=== PATIENT | female | born 1990 | race Caucasian/White ===

== ENCOUNTER 2024-01-12 08:49 | Outpatient (CLI) | payer OTHER, SELFPAY | END 2024-01-12 08:50 | disposition home or self-care (01) | PROVIDERS: Visit Provider Physician Assistant | DX: Z01.419 Encounter for gynecological examination (general) (routine) without abnormal findings (principal); E66.9 Obesity, unspecified; Z12.4 Encounter for screening for malignant neoplasm of cervix; Z13.1 Encounter for screening for diabetes mellitus; Z13.6 Encounter for screening for cardiovascular disorders; Z13.29 Encounter for screening for other suspected endocrine disorder | CPT/HCPCS: 80061; 82947; 84443 ==

== ENCOUNTER 2024-05-08 15:46 | Outpatient (CLI) | payer OTHER, SELFPAY ==
--- NOTE | 2024-05-08 16:00 | CRLHL7_ITS ---
For Patients: As a result of the Century Cures Act, medical imaging exams and procedure reports are released immediately into your electronic medical record. You may view this report before your referring provider. If you have questions, please contact your health care provider. INDICATION: First trimester scan, establish dates. COMPARISON: None. TECHNIQUE: Real-time jefferson-scale imaging of the pelvis was performed. FINDINGS: Sonographic imaging demonstrates a single living intrauterine gestation. The embryo demonstrates a regular cardiac rate measuring 173 beats per minute. The embryo`s crown-rump length measurement of 1.9 cm corresponds to a gestational age of 8 weeks 2 days with a sonographic due date of 12/16/2024. There is a normal-appearing yolk sac. There are no gross abnormalities noted within the embryo at this early state of development. The gestational sac has a normal appearance. There is a 10 x 10 x 2 millimeter perigestational hemorrhage. The amount of fluid within the sac appears appropriate for gestational age. The cervix is closed. Intramural fibroid within the right side of the uterus measures 9 x 10 x 9 millimeters. Simple left ovarian cyst measures 2.8 x 2.6 x 2.7 cm. Small right adnexal cyst measures 1.3 x 1.1 x 1.2 cm. Normal right ovary. There are no suspicious fluid collections noted in the cul-de-sac. IMPRESSION: Sonographic gestational age 8 weeks 2 days and sonographic due date 12/16/2024. Dictated by Samir Jackson MD @ 05/10/2024 5:42:39 AM (Electronically Signed)
== END 2024-05-08 15:47 | disposition home or self-care (01) ==
LOC: US 15:46
PROVIDERS: Visit Provider Registered Nurse
DX: Z34.91 Encounter for supervision of normal pregnancy, unspecified, first trimester (principal); Z3A.08 8 weeks gestation of pregnancy
CPT/HCPCS: 76817

== ENCOUNTER 2024-05-08 16:52 | Outpatient (CLI) | payer OTHER, SELFPAY ==
[2024-05-08 22:09] LABS: Chlamydia DNA Amplified* NOT DETECTED (No Detected); GC DNA Amplified* NOT DETECTED (No Detected)
[2024-05-14 07:23] LABS: Total Protein Urine 16 mg/dL
[2024-05-14 07:24] LABS: Creatinine Urine 60.4 mg/dL; Protein Creatinine Ratio Urine 0.26 (0-0.19)
[2024-05-14 07:25] LABS: Collection Time Urine 24 Hours; Total Volume 24 Hour Urine 2650 ml; Urine Creatinine mg/24 Hour 0 mg/Day
== END 2024-05-08 16:53 | disposition home or self-care (01) ==
PROVIDERS: PCP Physician Assistant; Visit Provider Registered Nurse
DX: Z34.01 Encounter for supervision of normal first pregnancy, first trimester (principal); Z67.10 Type A blood, Rh positive
CPT/HCPCS: 82565; 82570; 84156; 84450; 84460; 84520; 86592; 86703; 86704; 86706; 86762; 86787; 86803; 86850; 86900; 86901; 87086; 87340; 87491; 87591

== ENCOUNTER 2024-07-24 06:00 | Outpatient (CLI) | payer OTHER, SELFPAY | END 2024-07-24 06:01 | disposition home or self-care (01) | LOC: NFLDREF 07-27 07:33 | PROVIDERS: Visit Provider Obstetrics & Gynecology | DX: O12.12 Gestational proteinuria, second trimester (principal); Z3A.18 18 weeks gestation of pregnancy | CPT/HCPCS: 82570; 84156 ==

== ENCOUNTER 2024-08-01 13:51 | Outpatient (CLI) | payer OTHER, SELFPAY ==
--- NOTE | 2024-08-01 14:00 | CRLHL7_ITS ---
For Patients: As a result of the Century Cures Act, medical imaging exams and procedure reports are released immediately into your electronic medical record. You may view this report before your referring provider. If you have questions, please contact your health care provider. HISTORY: anatomic survey. COMPARISON: Early OB ultrasound from 05/08/2024. TECHNIQUE: Ultrasound examination of the is performed with transabdominal technique. Transvaginal ultrasound examination of the cervix is performed. FINDINGS: A single intrauterine gestation is seen in variable presentation with regular cardiac activity at 155 beats per minute. The placenta is anterior and is free of the cervical os. The placental grade is 0 and the amniotic fluid volume is normal. Single deepest vertical pocket: Normal at 5.5 cm. Cervix nondilated and normal in length at 4.0 cm. BPD: 4.9 cm 21 weeks 0 days HC: 18.6 cm 21 weeks 0 days AC: 15.9 cm 21 weeks 0 days. Fifty-ninth percentile. FL: 3.7 cm 21 weeks 5 days The estimated age by ultrasound is 21 weeks 2 days, with an estimated date of delivery of 12/10/2024. This correlates well with the clinical age of 20 weeks 4 days and the previous ultrasound. The ultrasound ratios are normal. The estimated weight 400 grams is at the 82nd percentile based on the clinical dates. The anatomic survey demonstrates normal appearing intracranial structures with a normal septum pellucidum and normal cerebellum. The nuchal thickness is normal at 4 mm, and the lateral ventricle is normal in diameter at 5 mm. The upper lip, 4 chamber heart, left and right ventricular outflow tracts, diaphragm, stomach, cord insertion site, 3-vessel cord, and kidneys are normal in appearance. The urinary bladder and spine in the longitudinal plane are not adequately examined. IMPRESSION: 1. Single intrauterine gestation in cephalic presentation with regular cardiac activity. 2. Estimated gestational age is 21 weeks 2 days. 3. There has been appropriate interval growth. 4. The estimated weight 400 grams is at the 82nd percentile based on the clinical dates. 5. Unable to examine the urinary bladder and spine in the longitudinal plane. Dictated by Marky Petersen MD @ 08/01/2024 11:00:38 PM (Electronically Signed)
== END 2024-08-01 13:52 | disposition home or self-care (01) ==
LOC: US 13:51
PROVIDERS: Visit Provider Obstetrics & Gynecology
DX: Z34.92 Encounter for supervision of normal pregnancy, unspecified, second trimester (principal); Z3A.21 21 weeks gestation of pregnancy
CPT/HCPCS: 76805; 76817

== ENCOUNTER 2024-08-30 14:06 | Outpatient (CLI) | payer OTHER, SELFPAY ==
--- NOTE | 2024-08-30 14:00 | CRLHL7_ITS ---
For Patients: As a result of the Century Cures Act, medical imaging exams and procedure reports are released immediately into your electronic medical record. You may view this report before your referring provider. If you have questions, please contact your health care provider. INDICATION: Follow-up bladder and spine COMPARISON: 08/01/2024 TECHNIQUE: Real-time jefferson-scale imaging of the pelvis was performed. FINDINGS: heart rate 150 beats per minute. Cervix closed measuring 3.9 cm. Anterior placenta. Vertex position. Normal spine and bladder. IMPRESSION: Normal spine and bladder. Dictated by Samir Jackson MD @ 08/31/2024 10:17:27 AM (Electronically Signed)
== END 2024-08-30 14:07 | disposition home or self-care (01) ==
LOC: US 14:06
PROVIDERS: Visit Provider Obstetrics & Gynecology
DX: O35.FXX0 Maternal care for other (suspected) fetal abnormality and damage, fetal musculoskeletal anomalies of trunk, not applicable or unspecified (principal)
CPT/HCPCS: 76816

== ENCOUNTER 2024-09-25 15:16 | Outpatient (CLI) | payer OTHER, SELFPAY | END 2024-09-25 15:17 | disposition home or self-care (01) | LOC: NFLDREF 09-29 10:13 | PROVIDERS: Visit Provider Obstetrics & Gynecology | DX: Z34.93 Encounter for supervision of normal pregnancy, unspecified, third trimester (principal); Z3A.28 28 weeks gestation of pregnancy | CPT/HCPCS: 86592 ==

== ENCOUNTER 2024-11-08 14:50 | Outpatient (CLI) | payer OTHER, SELFPAY ==
--- NOTE | 2024-11-08 15:00 | CRLHL7_ITS ---
For Patients: As a result of the Century Cures Act, medical imaging exams and procedure reports are released immediately into your electronic medical record. You may view this report before your referring provider. If you have questions, please contact your health care provider. INDICATION: Unspecified pre-existing HTN TECHNIQUE: Real time jefferson scale imaging of the fetus was performed. COMPARISON: 08/30/2024 FINDINGS/IMPRESSION: Sonographic imaging demonstrates a single living intrauterine gestation. Fetus demonstrates a regular cardiac rate of 157 beats per minute. Fetus has a vertex position. The placenta lies anterior. Amniotic fluid volume appears normal and there is a single deepest pocket of 6.6 cm. The estimated weight is 2845gm which lies at the 83rd %. BPD greater than 97th percentile. HC 85th percentile. AC 92nd percentile. FL 26th percentile. Sonographic gestational age 36 weeks 4 days and sonographic due date 12/02/2024. Sonographic gauge 13 days ahead of the clinical age. The fetus was active and demonstrated normal breathing movements. There was normal flexion and extension of the trunk and extremities. Normal biophysical profile score 8/8. Dictated by Samir Jackson MD @ 11/09/2024 9:57:09 AM (Electronically Signed)
== END 2024-11-08 14:51 | disposition home or self-care (01) ==
LOC: US 14:51
PROVIDERS: Visit Provider Obstetrics & Gynecology
DX: O10.913 Unspecified pre-existing hypertension complicating pregnancy, third trimester (principal); O36.63X0 Maternal care for excessive fetal growth, third trimester, not applicable or unspecified; Z3A.36 36 weeks gestation of pregnancy
CPT/HCPCS: 76816; 76819

== ENCOUNTER 2024-11-08 15:44 | Outpatient (CLI) | payer OTHER, SELFPAY | END 2024-11-08 15:45 | disposition home or self-care (01) | PROVIDERS: Visit Provider Obstetrics & Gynecology | DX: O10.913 Unspecified pre-existing hypertension complicating pregnancy, third trimester (principal); Z3A.34 34 weeks gestation of pregnancy | CPT/HCPCS: 82565; 82570; 84156; 84450; 84460; 84520 ==

== ENCOUNTER 2024-11-16 11:15 | Outpatient (CLI) | payer OTHER, SELFPAY | END 2024-11-16 11:16 | disposition home or self-care (01) | LOC: NFLDREF 11-22 02:43 | PROVIDERS: Visit Provider Obstetrics & Gynecology | DX: O10.913 Unspecified pre-existing hypertension complicating pregnancy, third trimester (principal); Z3A.35 35 weeks gestation of pregnancy | CPT/HCPCS: 82570; 84156 ==

== ENCOUNTER 2024-11-16 11:18 | Outpatient (CLI) | payer OTHER, SELFPAY ==
--- NOTE | 2024-11-16 11:30 | CRLHL7_ITS ---
For Patients: As a result of the Century Cures Act, medical imaging exams and procedure reports are released immediately into your electronic medical record. You may view this report before your referring provider. If you have questions, please contact your health care provider. INDICATION: Pre-existing hypertension TECHNIQUE: Ultrasound OB pelvis transabdominal. Real-time jefferson-scale imaging of the fetus was performed without stress testing. COMPARISON: Ob ultrasound 11/08/2024 FINDINGS: heart rate: Regular, 139 bpm. position: Cephalic. Amniotic fluid volume single deepest pocket 6.7 cm, 2/2. motion 0/2. No image saved. tone 0/2. No image saved. breathing movements 2/2. No image saved Umbilical artery S/D ratio: 2.1 with diastolic activity present. IMPRESSION: [place]daña intrauterine with a biophysical profile 4/8. Correlate with nonstress test. Cardiac activity is present. Normal umbilical artery Doppler waveform with S/D ratio of 2.1. Dictated by Seda Miller MD @ 11/16/2024 12:47:28 PM (Electronically Signed)
== END 2024-11-16 11:19 | disposition home or self-care (01) ==
LOC: US 11:18
PROVIDERS: Visit Provider Obstetrics & Gynecology
DX: O10.913 Unspecified pre-existing hypertension complicating pregnancy, third trimester (principal); Z3A.35 35 weeks gestation of pregnancy
CPT/HCPCS: 76819; 76820

== ENCOUNTER 2024-11-16 17:13 | Inpatient (IN) | payer OTHER, SELFPAY ==
[2024-11-16] VITALS (42 sets, daily range): BP systolic 111–164; BP diastolic 58–114; PULSE 41–97; RESP 16; TEMP 36.7–37.1; O2SAT 75–96; BMI 36.4
[2024-11-16 13:41] LABS: Hematocrit 35.8 % (33.0-51.0); Hemoglobin* 12.1 gm/dL (12.0-16.0); Mean Corpuscular HGB Conc 34 gm/dL (32-36); Mean Corpuscular Hemoglobin 30 pg (26-34); Mean Corpuscular Volume 89 fL (80-100); Platelet Count* 199 K/uL (140-440); Red Blood Count 4.02 m/uL (4.00-5.20); White Blood Count* 14.77 K/uL (4.50-11.00)
[2024-11-16 13:44] LABS: Slide Review Reflex No
[2024-11-16 13:50] LABS: Alanine Aminotransferase* 20 U/L (4-35); Aspartate Amino Transferase* 16 U/L (12-35); Blood Urea Nitrogen* 16 mg/dL (5-24); Creatinine* 0.8 mg/dL (0.5-1.5); Estimated Glomerular Filt Rate 100 ml/min
[2024-11-16] MEDS: NIFEdipine 30 MG TAB.ER.24 PO (14:51)
[2024-11-16] MEDS: BETAMETHASONE SOD PHOS/ACETATE 6 MG/ML ML 12 MG IM (14:59)
[2024-11-16] MEDS: ACETAMINOPHEN 500 MG TABLET 1000 MG PO (16:52)
--- NOTE | 2024-11-16 16:57 | P.OBHP_ITS ---
OB - H&P: HPI Labor/Induction History of Present Illness Date Seen: 11/16/24 Chief Complaint: The patient is a 34 year old 1 para 0 woman at 35 weeks, 6 days gestation by LMP consistent with 1st trimester ultrasound, TORSTEN 12/15/2024, who presented today for BPP for indication of chronic hypertension on medication complicating . Her initial score was 4/8, missing 4 points for lack of fine and gross body movements. She was sent to the Center for extended monitoring, which was entirely reactive and reassuring. However, her blood pressures were noted to be intermittently, severely elevated. This is despite her taking nifedipine 30 mg ER every morning. She was given an additional dose of 30 mg while in the Center, which did not prevent severely elevated blood pressures. At this point, she has been monitored over the course of nearly 4 hours, and has had multiple blood pressures elevated to the severe range. HELLP labs have been reassuring, with creatinine of 0.8, normal transaminases, and normal platelets. Her protein to creatinine ratio is still beneath 0.3. She does complain of a headache, but this has responded to Tylenol. Past medical, surgical, family, and social history are reviewed and updated in the EHR. 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 Baby girl: [place] name #BMI 32.7 Hemoglobin A1c: 5.4 Recommended daily low-dose aspirin starting at 12 weeks to reduce risk of preeclampsia #Chronic Hypertension with severe gestational exacerbation * Nifedipine ER 30mg daily started on 11/08/2024, recommended checking BP daily contact clinic if >/= 140/90 * Blood pressure at 1st OB vis 138/68. Baseline pre E labs drawn. Normal BUN, Creat, AST, ALT. Total protein 20. 424 mg protein / 24 hours. * Referred to nephrology 05/14. -- Ordered a urinalysis to rule out hematuria (n egative). If positive for blood then plan to complete glomerulonephritis workup. Follow-up with Nephrology 07/30/2024: 264 mg protein/24 hour. Follow- up with Nephrology February 2025. * Given baseline proteinuria and elevated systolic at first visit, I favor management as chronic hypertensive * Q4 weeks growth scan starting at 28 weeks * Weekly BPP starting at 34w5d on 11/08/2024 * Delivery at 37w0d - 39w6d: would like to hold off if possible until 12/01/24 or later * Labs 11/08/2024: Hgb 11.9. Plts 206k, AST 20, ALT 18, Creat: 1.0, BUN 17. Urine P/C: 0.22 # History of anxiety in 2022. Took medication for less than a month and self- discontinued. Currently stable. Covid: Completed and boosted x1. Recommended booster. Patient declines. Flu: received Tdap: received RSV: 11/07/24 32 week DENNIS = 2, PHQ = 4 Imagin11/08/2024; Vtx. SDP 6.6cm. BPP 06/28. EFW 2845 g, 6 lb 4 oz, 83%. BPD >97%, HC 85%, AC 92%, FL 26% Review of Systems Narrative: Positive for headache. Responded to Tylenol. No visual changes or right upper quadrant pain. Meds Home Medications and Allergies Home Medications ?Medication ?Instructions ?Recorded ?Confirmed ?Type docosahexaenoic acid 200 mg 200 mg PO DAILY 01/12/24 11/16/24 History capsule ( DHA) acetaminophen 325 mg capsule 325 mg PO ONCE PRN 06/04/24 11/16/24 History (Tylenol) aspirin 81 mg chewable tablet 81 mg PO QDAY 06/04/24 11/16/24 History Allergies Allergy/AdvReac Type Severity Reaction Status Date / Time No Known Drug Allergies Allergy Verified 11/16/24 12:51 OB - H&P: Exam Physical Exam: Vital signs: Temp Pulse BP Pulse Ox 98.2 F 81 132/63 96 11/16/24 12:51 11/16/24 16:35 11/16/24 16:49 11/16/24 16:09 Narrative: Physical exam: General: No acute distress Psych: Alert and oriented x3, full affect HEENT: Normocephalic, atraumatic Heart: Regular rate and rhythm, no murmur rub or gallop Lungs: Clear to auscultation bilaterally Abdomen: Soft, nontender, gravid, cephalic lie Lower extremities: No edema or erythema Pelvic exam: 1 / 50 / -2 / midposition / moderate consistency tracing: Baseline 140, accelerations present, no decelerations, moderate variability Contractions intermittently registering at a small amplitude every 2 minutes OB - Results Labs Labs: Short CBC 11/16/24 Range/Units 13:27 WBC 14.77 H (4.50-11.00) K/uL Hgb 12.1 (12.0-16.0) gm/dL Hct 35.8 (33.0-51.0) % Plt Count 199 (140-440) K/uL BMP 11/16/24 13:27 BUN 16 Creatinine 0.8 Liver Function 11/16/24 Range/Units 13:27 AST 16 (12-35) U/L ALT 20 (4-35) U/L OB - Problem Based A/P Additional Plan (1) Gestational hypertension: Problem details: Severe gestational hypertension superimposed on chronic hypertension Status: Acute Plan Admit to Center for induction of labor for indication of severe gestational hypertension superimposed upon chronic hypertension. Begin magnesium sulfate for seizure prophylaxis. Serial HELLP labs q.6 hours. Fluid restriction to 2 L p.o. per 24 hours. Strict ins and outs. Treat any severe range blood pressures that are sustained with IV antihypertensives. Once labor begins, begin ampicillin for GBS unknown status until her GBS result has returned. Unfavorable cervix. Using aseptic technique, Cook catheter placed. Intrauterine and vaginal balloons inflated to 60 cc. Patient tolerated this well.
[2024-11-16 17:54] LABS: Hemoglobin* 12.2 gm/dL (12.0-16.0); Mean Corpuscular HGB Conc 34 gm/dL (32-36); Mean Corpuscular Hemoglobin 30 pg (26-34); Mean Corpuscular Volume 89 fL (80-100); Platelet Count* 209 K/uL (140-440); Red Blood Count 4.06 m/uL (4.00-5.20); White Blood Count* 16.89 K/uL (4.50-11.00)
[2024-11-16 18:00] LABS: Slide Review Reflex No
[2024-11-16] MEDS: MAGNESIUM IV 4 GM/100 ML PIGGYBACK IVPB (18:01)
[2024-11-16] MEDS: LACTATED RINGERS 1000 ML 1,000 ML 75 ML IV (18:01)
[2024-11-16 18:12] LABS: Alanine Aminotransferase* 21 U/L (4-35); Aspartate Amino Transferase* 17 U/L (12-35); Blood Urea Nitrogen* 15 mg/dL (5-24); Creatinine* 0.8 mg/dL (0.5-1.5); Estimated Glomerular Filt Rate 100 ml/min
[2024-11-16] MEDS: MAGNESIUM Infusion 40 GM/1,000 ML IV.SOLN IVPB (18:32)
[2024-11-16] MEDS: CALCIUM CARBONATE 500 MG CHEW PO (18:48)
[2024-11-16] MEDS: hydrOXYzine pamoate 25 MG CAPSULE 100 MG PO (20:31)
[2024-11-16] MEDS: MORPHINE 10 MG/ML inj IM (20:31)
[2024-11-16] MEDS: OXYTOCIN 30 unit/500 ML in NS 30 UNIT/500 ML BAG IVPB (20:57)
[2024-11-16] MEDS: ONDANSETRON 2 MG/ML inj 4 MG IV (23:50)
[2024-11-17] VITALS (108 sets, daily range): BP systolic 98–179; BP diastolic 50–94; PULSE 74–109; RESP 16; TEMP 36.5–37; O2SAT 92–100
[2024-11-17 01:49] LABS: Hematocrit 36.1 % (33.0-51.0); Hemoglobin* 12.1 gm/dL (12.0-16.0); Mean Corpuscular HGB Conc 34 gm/dL (32-36); Mean Corpuscular Hemoglobin 30 pg (26-34); Mean Corpuscular Volume 90 fL (80-100); Platelet Count* 198 K/uL (140-440); Red Blood Count 4.03 m/uL (4.00-5.20); White Blood Count* 19.88 K/uL (4.50-11.00)
[2024-11-17 02:00] LABS: Slide Review Reflex No
[2024-11-17 02:06] LABS: Alanine Aminotransferase* 21 U/L (4-35); Aspartate Amino Transferase* 19 U/L (12-35); Blood Urea Nitrogen* 14 mg/dL (5-24); Creatinine* 0.8 mg/dL (0.5-1.5); Estimated Glomerular Filt Rate 100 ml/min
[2024-11-17 02:20] LABS: Magnesium* 4.9 mg/dL (1.5-2.6)
[2024-11-17 06:03] LABS: Hematocrit 34.5 % (33.0-51.0); Hemoglobin* 11.6 gm/dL (12.0-16.0); Mean Corpuscular HGB Conc 34 gm/dL (32-36); Mean Corpuscular Hemoglobin 30 pg (26-34); Mean Corpuscular Volume 90 fL (80-100); Platelet Count* 194 K/uL (140-440); Red Blood Count 3.84 m/uL (4.00-5.20); White Blood Count* 20.18 K/uL (4.50-11.00)
[2024-11-17 06:07] LABS: Slide Review Reflex No
[2024-11-17 06:11] LABS: Alanine Aminotransferase* 21 U/L (4-35); Aspartate Amino Transferase* 18 U/L (12-35); Blood Urea Nitrogen* 13 mg/dL (5-24); Creatinine* 0.8 mg/dL (0.5-1.5); Est. Creatinine Clearance* 111.79; Estimated Glomerular Filt Rate 100 ml/min
[2024-11-17 06:14] LABS: Magnesium* 5.5 mg/dL (1.5-2.6)
[2024-11-17] MEDS: LACTATED RINGERS 1000 ML 1,000 ML 75 ML IV (06:53)
[2024-11-17] MEDS: CALCIUM CARBONATE 500 MG CHEW PO (09:00)
[2024-11-17] MEDS: ACETAMINOPHEN 500 MG TABLET 1000 MG PO ×2 (09:01→15:05)
--- NOTE | 2024-11-17 09:28 | PM.OBPNL ---
Subjective Time Seen by Provider: 09:48 Date Seen: 11/17/24 Narrative: She can tell is a 34-year-old at 36 weeks 0 days gestation admitted for superimposed preeclampsia with severe features yesterday, by severe range blood pressures. She was initiated on magnesium sulfate for seizure prophylaxis, serial HELLP labs have been obtained and are within normal limits. Induction of labor was started with a Cook catheter and Pitocin overnight. This morning, patient notes her contractions are like period cramps, rated as 3/10 in severity and occurring every 5-10 minutes. She is currently on Pitocin 12 milliunits per minute. Denies vaginal bleeding or leaking of fluid. Endorses active movement. Denies headache, vision changes or right upper quadrant pain. She notes she is feeling poorly on magnesium, flushed and tired. Objective Exam: General: Alert and oriented, in no acute distress Psych: Appropriate mood and affect Abdomen: Gravid. EFW 2845gm which lies at the 83rd %. Cervix: 5/80/-1 FHR: Baseline 140bpm, moderate variability, accelerations present and decelerations absent Vital Signs: Last Vital Signs Temp 98.1 F 11/17/24 04:30 Pulse 78 11/17/24 08:29 Resp 16 11/17/24 04:30 BP 115/59 L 11/17/24 08:29 Pulse Ox 93 11/16/24 18:45 Plan Plan: Kianna is a 34yo at 36w0d GA admitted for IOL in the setting of superimposed preE with SF (severe range BP). is otherwise complicated by elevated BMI. IOL progress has included cook catheter and pitocin. Overnight, her BP was in the normal to mild range. Plan to hold her AM nifedipine at this time, given normal BPs and planned epidural and potential post-epidural hypotension. Plan to resume long acting regimen as needed in the coming hours. Diligent BP monitoring ongoing, plan to treat any sustained SRBP as needed. Q6H HELLP labs have remained WNL. UOP is robust, 900mL in the last 4 hours. - Continue BP monitoring and serial HELLP labs. Continue magnesium sulfate for 24 hours post-delivery. - Cervix is 5/80/-1 on exam this morning, Pitocin at 12 milliunits per minute. Plan to continue Pitocin titration, as patient is only rating her contractions as 3/10 every 5-10 minutes. Discussed likely next step of AROM around noon, patient intends to get epidural placed prior to this. - blood type A positive - GBS unknown, start GBS prophylaxis in the setting of prematurity as risk factors - Peds to attend delivery given prematurity and mag sulfate
[2024-11-17] MEDS: AMPICILLIN 2 GM in 0.9 % SODIUM CHLORIDE Mini-bag 100 ML IVPB (10:09)
[2024-11-17] MEDS: ROPIVACAINE 0.2% 100 ml 100 ML 12 MG EPIDURAL ×2 (11:35→19:14)
[2024-11-17] MEDS: LIDOCAINE 2% (PF) 5 ML VIAL EPIDURAL ×2 (11:35→17:43)
--- NOTE | 2024-11-17 11:43 | PM.ANBPRC ---
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 Lives in [place] with her . Exercises 5 days a week. Nonsmoker. What is your current living situation?: I presently have a place to live Problems where you live: no known problems In the past 12 months, utilities in danger of being shut off: no In past 12 months, lack of transportation kept you from medical appts, meetings, work, or getting things needed for daily living: no In the past 12 mos, have been you worried that your food would run out before you had money to buy more?: never true In the past 12 mos, the food you bought just didn't last and you didn't have money to buy more?: never true Smoking Status: Never smoker How often does anyone, including family, friends and others, physically hurt you: never How often does anyone, including family, friends and others, insult or talk down to you: never How often does anyone, including family, friends and others, threaten you with harm: never How often does anyone, including family, friends and others, scream or curse at you: never Meds Home Medications and Allergies Home Medications ?Medication ?Instructions ?Recorded ?Confirmed ?Type docosahexaenoic acid 200 mg 200 mg PO DAILY 01/12/24 11/16/24 History capsule ( DHA) acetaminophen 325 mg capsule 325 mg PO ONCE PRN 06/04/24 11/16/24 History (Tylenol) aspirin 81 mg chewable tablet 81 mg PO QDAY 06/04/24 11/16/24 History Allergies Allergy/AdvReac Type Severity Reaction Status Date / Time No Known Drug Allergies Allergy Verified 11/16/24 12:51 Results Labs Labs: Laboratory Results - last 24 hr 11/16/24 11/16/24 11/17/24 13:27 17:40 01:40 WBC 14.77 H 16.89 H 19.88 H RBC 4.02 4.06 4.03 Hgb 12.1 12.2 12.1 Hct 35.8 36.0 36.1 MCV 89 89 90 MCH 30 30 30 MCHC 34 34 34 Plt Count 199 209 198 BUN 16 15 14 Creatinine 0.8 0.8 0.8 Estimated Creat Clear Estimated GFR 100 100 100 Magnesium 4.9 H* AST 16 17 19 ALT 20 21 21 Blood Type A Positive Antibody Screen NEGATIVE 11/17/24 05:36 WBC 20.18 H RBC 3.84 L Hgb 11.6 L Hct 34.5 MCV 90 MCH 30 MCHC 34 Plt Count 194 BUN 13 Creatinine 0.8 Estimated Creat Clear 111.79 Estimated GFR 100 Magnesium 5.5 H* AST 18 ALT 21 Blood Type Antibody Screen Vital Signs Vital Signs: Last Vital Signs Temp 98.1 F 11/17/24 04:30 Pulse 88 11/17/24 11:41 Resp 16 11/17/24 04:30 BP 118/60 11/17/24 11:41 Pulse Ox 96 11/17/24 11:40 Weight: 118.569 kg Height: 180.34 cm Anesthesia Procedures Epidural Insertion Patient Location: OB Start Time: 11:15 Stop Time: 11:45 Start Date: 11/17/24 Stop Date: 11/17/24 Reason for Block: primary anesthetic Patient Position: sitting Performed By: Arnie Donovan Preanesthetic Checklist: IV checked, risks and benefits discussed, surgical consent, monitors and equipment checked, pre-op evaluation, timeout performed and anesthesia consent Prep: chlorhexidine gluconate Monitoring: blood pressure monitoring, rn cardiac cath, continuous pulse oximetry and heart rate Approach: midline Vertebral Space: lumbar (1-5) Needle Type: Tuohy needle Injection Technique: continuous catheter (catheter) Needle gauge: 17 Needle Length (cm): 10 cm Needle Insertion Depth (cm): 6 Catheter Gauge: 19 Catheter Type: multi-orifice Catheter at skin depth (cm): 11 Test Dose Result: negative and lidocaine 1.5% with epinephrine 1 to 200,000
[2024-11-17 11:51] LABS: Hematocrit 34.8 % (33.0-51.0); Hemoglobin* 11.5 gm/dL (12.0-16.0); Mean Corpuscular HGB Conc 33 gm/dL (32-36); Mean Corpuscular Hemoglobin 30 pg (26-34); Mean Corpuscular Volume 90 fL (80-100); Platelet Count* 193 K/uL (140-440); Red Blood Count 3.87 m/uL (4.00-5.20); White Blood Count* 19.96 K/uL (4.50-11.00)
[2024-11-17 12:05] LABS: Alanine Aminotransferase* 22 U/L (4-35); Aspartate Amino Transferase* 18 U/L (12-35); Blood Urea Nitrogen* 14 mg/dL (5-24); Creatinine* 0.9 mg/dL (0.5-1.5); Est. Creatinine Clearance* 99.37; Estimated Glomerular Filt Rate 87 ml/min
[2024-11-17 12:13] LABS: Slide Review Reflex No
[2024-11-17 12:14] LABS: Magnesium* 5.7 mg/dL (1.5-2.6)
[2024-11-17] MEDS: PHENYLEPHRINE 100 MCG/ML SYRINGE IVP ×2 (12:15→12:22)
[2024-11-17] MEDS: ePHEDrine sulfate 5 MG/ML inj 10 MG IVP ×2 (12:28→12:51)
[2024-11-17] MEDS: LACTATED RINGERS 1000 ML 1,000 ML IV (12:32)
--- NOTE | 2024-11-17 13:09 | PM.OBPNL ---
Subjective Time Seen by Provider: 13:09 Date Seen: 11/17/24 Narrative: She can tell is a 34-year-old at 36 weeks 0 days gestation admitted for superimposed preeclampsia with severe features yesterday, by severe range blood pressures. She was initiated on magnesium sulfate for seizure prophylaxis, serial HELLP labs have been obtained and are within normal limits. Induction of labor was started with a Cook catheter and Pitocin. She notes contractions picked up since our last check, now s/p epidural. Objective Exam: General: Alert and oriented, in no acute distress Psych: Appropriate mood and affect Abdomen: Gravid. EFW 2845gm which lies at the 83rd %. Cervix: 5/80/-1 - s/p AROM with return of clear fluid. FHR: Baseline 140bpm, moderate variability, accelerations present and decelerations absent Vital Signs: Last Vital Signs Temp 97.8 F 11/17/24 12:34 Pulse 93 11/17/24 13:04 Resp 16 11/17/24 04:30 BP 133/72 11/17/24 13:04 Pulse Ox 99 11/17/24 12:10 Plan Plan: Kianna is a 34yo at 36w0d GA admitted for IOL in the setting of superimposed preE with SF (severe range BP). is otherwise complicated by elevated BMI. IOL progress has included cook catheter and pitocin. - Continue BP monitoring and serial HELLP labs. Continue magnesium sulfate for 24 hours post-delivery. - Cervix is unchanged at 5/80/-1. s/p AROM with return of clear fluid. - Comfortable with epidural place. - Category 1 FHR tracing. - Anticipate next check in 4 hours, sooner as clinically indicated. - Blood type A positive - GBS unknown, start GBS prophylaxis in the setting of prematurity as risk factors - Peds to attend delivery given prematurity and mag sulfate
[2024-11-17] MEDS: AMPICILLIN 1 GM in 0.9 % SODIUM CHLORIDE Mini-bag 100 ML IVPB ×3 (14:09→22:26)
[2024-11-17] MEDS: MAGNESIUM Infusion 40 GM/1,000 ML IV.SOLN IVPB (14:42)
[2024-11-17] MEDS: BETAMETHASONE SOD PHOS/ACETATE 6 MG/ML ML 12 MG IM (15:13)
[2024-11-17 17:19] LABS: Strep B DNA Probe Negative (Negative)
[2024-11-17] MEDS: fentaNYL 100 MCG/2 ML inj EPIDURAL (17:35)
[2024-11-17 18:04] LABS: Strep B Susceptibility Needed? No
[2024-11-17 18:09] LABS: Hematocrit 34.3 % (33.0-51.0); Hemoglobin* 11.4 gm/dL (12.0-16.0); Mean Corpuscular HGB Conc 33 gm/dL (32-36); Mean Corpuscular Hemoglobin 30 pg (26-34); Mean Corpuscular Volume 90 fL (80-100); Platelet Count* 193 K/uL (140-440); Red Blood Count 3.82 m/uL (4.00-5.20); White Blood Count* 21.09 K/uL (4.50-11.00)
[2024-11-17 18:14] LABS: Slide Review Reflex No
[2024-11-17 18:26] LABS: Alanine Aminotransferase* 20 U/L (4-35); Aspartate Amino Transferase* 19 U/L (12-35); Blood Urea Nitrogen* 13 mg/dL (5-24); Creatinine* 0.9 mg/dL (0.5-1.5); Est. Creatinine Clearance* 99.37; Estimated Glomerular Filt Rate 87 ml/min
[2024-11-17 18:32] LABS: Magnesium* 6.1 mg/dL (1.5-2.6)
--- NOTE | 2024-11-17 21:44 | PM.OBPNL ---
Subjective Date Seen: 11/17/24 Narrative: Delayed documentation due to patient cares. Kianna is a 34-year-old at 36 weeks 0 days gestation admitted for superimposed preeclampsia with severe features yesterday, by severe range blood pressures. She was initiated on magnesium sulfate for seizure prophylaxis, serial HELLP labs have been obtained and are within normal limits. BPs have been in the normal to mild range, not on an antihypertensive regimen at this time. Induction of labor was started with a Cook catheter and Pitocin, augmented with AROM. Kianna has been complete and pushing since 0. On my initial exam, she is 10/100/0 station and position palpates KARISSA. She had an normal course through the active phase of labor. She had difficulty with pain control, where epidural was bolused by anesthesia about 1 hour before onset of pushing. She has had severe left back pain that does seem to coincide with contractions, where pushing has been delayed intermittently for position changes, ice and back massage. She has been pushing for about 1.5 of the last 2 hours. station has made slow descent, now about +1. Moderate caput noted. station palpates KARISSA confirmed with US where spine is noted to be anterior. We discussed gradual progress has been made. She has a tachysystolic contraction pattern, where pitocin was reduced to 10mu/min to allow for more appropriate contraction spacing. Maternal effort is good, pain control is fair despite left back pain. Continue maternal expulsive efforts. Objective Vital Signs: Last Vital Signs Temp 98.1 F 11/17/24 16:40 Pulse 107 H 11/17/24 21:37 Resp 16 11/17/24 04:30 BP 145/90 H 11/17/24 21:37 Pulse Ox 98 11/17/24 18:44
--- NOTE | 2024-11-17 23:25 | P.OBPN_ITS ---
Subjective Time Seen by Provider: 23:25 Date Seen: 11/17/24 Narrative: At 2.5 hours of pushing time but 4 hours since complete, I returned to the bedside to complete an exam. station palpates at +2, minimal descent with expulsive efforts. position palpates KARISSA. Kianna is exhausted and miserable from her right back and pelvic pain. Given this and the fact that delivery is not imminent, we discussed proceeding with an expedited delivery via operative vaginal delivery versus primary . I explained that my medical recommendation would be to consider forceps if we do proceed to an operative, given the degree of caput and my impression for higher likelihood of success. I did explain the risk of forceps including failed operative delivery leading to , injury (bruising, laceration, nerve palsy, fracture, intracranial hemorrhage), shoulder dystocia, and maternal OASIS injury. In addition, I am concerned that her pain control is not sufficient to allow for forceps delivery as this will require lithotomy position and Kianna has required frequent position changes due to her back/hip pain. We discussed a bolus via her epidural could be administered in advance. Explained that a second-stage is not without risk as well, including potential deeply impacted head, hemorrhage, infection and damage to surrounding structures. If pain control is inadequate for surgery with bolusing the epidural, I explained there is always a risk of conversion to general anesthetic. Kianna and her had the opportunity to discuss their options independently, where patient wishes to proceed with a trial of forceps. She understands that will make an assessment at time delivery, for the role of episiotomy. Written consent for forceps assisted vaginal delivery vs primary was obtained. Plan to proceed to the operating room for trial of forceps. I have requested a partner, Dr. Vinson, assist in her delivery. BT A+, active T/S on file. Pediatrics to attend delivery given prematurity, mag sulfate and planning op erative vaginal delivery vs . Objective Vital Signs: Last Vital Signs Temp 98.1 F 11/17/24 16:40 Pulse 95 11/17/24 23:07 Resp 16 11/17/24 04:30 BP 140/70 H 11/17/24 23:07 Pulse Ox 98 11/17/24 18:44
[2024-11-17] MEDS: AZITHROMYCIN 500 MG in 0.9 % SODIUM CHLORIDE 250 ml 250 ML 255 MG IVPB (23:48)
[2024-11-18] VITALS (16 sets, daily range): BP systolic 116–143; BP diastolic 59–90; PULSE 76–99; RESP 16; TEMP 36.4–37.1; O2SAT 95–99
--- NOTE | 2024-11-18 01:20 | W.PM.VAGD1_ITS ---
Procedure Procedure Done: Global Procedure Details: Procedures Operation Date: 11/18/24 00:00 <No data on this case meets the specified criteria> Events: Chronic Hypertension, Pre-Eclampsia and Labor Induction Delivery augmentation: rupture of membranes Delivery monitor: external FHT Route of delivery: forceps Indication for instrumentation: other (Prolonged second stage) Laceration description: Perineal - 3rd Degree Delivery repair: Vicryl Estimated blood loss (mL): 700 Anesthesia type: Epidural Disposition: floor Complications: None Narrative: Kianna is a 34-year-old at 36 weeks 1 days gestation admitted for superimposed preeclampsia with severe features, by severe range blood pressures. was otherwise notable for abnormal testing (04/30 BPP on date of admission) and elevated BMI. heart tones on admission were category 1. Her labor was induced with cook catheter and Pitocin and epidural was utilized for pain management. Status of bag of irvin: AROM performed intrapartum with return of clear fluid. heart tones during active labor were category 1. She was complete at 1844 and started pushing at 1940. Second stage was complicated by slow descent, where ultimately there was a prolonged 2nd stage with pushing for nearly 3 hours with total length of 4 hours in the second stage. station was +2 with moderate caput, direct OA position. Patient was counseled on options and elected to proceed with a forceps assisted vaginal delivery in the operating room. Please see my prior notes for details. Dr. Vinson was requested to provide assistance and perineal support. In the OR, patient was placed in lithotomy position and bladder drained of clear urine (400cc). Repeat SVE notable for +2 station, direct position, OA caput and no moulding. Maternal pelvis adequate. EFW 2845gm which lies at the 83rd %ile on recent US. A matched set of Luikart forceps was obtained. The left blade was coated with soap and inserted in the patient's vagina on the left, in cephalic application opposite the left ear. The right blade was then applied to the right side of the head in direct cephalic application. The forceps lock was readily articulated. Correct application was confirmed with sagittal suture in the midline between the blades and the posterior fontanelle just superior to the plane of the shanks. No maternal soft tissue was entrapped between the blades. Forceps application time was 0019. With the next maternal contraction, careful downward traction was applied. Adequate descent was noted. There was then a 10 minute period without a contraction, where pitocin was uptitrated. With next contraction, excellent de scent was noted and the occiput distended the perineum across two pulls. An episiotomy was not performed given adequate vaginal caliber. The forceps handles were then directed cephalad in a J fashion and the forceps were disarticulated carefully just prior to expulsion of the head. Baby delivered OA at 0039, restituted KARISSA and the anterior and posterior shoulders delivered without difficulty. Nuchal cord: absent. The cord was clamped and cut after delayed cord clamping of 60 seconds. Active management of the third stage occurred with IV pitocin and gentle cord traction and the placenta delivered spontaneous and intact at 0048. Immediate uterine atony was noted, where IV pitocin rate was increased and 1g IV TXA was requested and administered. This, combined with bimanual massage, resulted in rapid improvement in tone and hemostasis. Cord gases sent: yes Cord blood sent for infant ABO: no details: - Liveborn female fetus at 0039 - weight 2640g - APGARs were 9 and 8 at 1 and 5 minutes respectively Perineum and vagina were inspected, and the following lacerations were noted: 3A laceration with just minimal fraying of the capsule of the external anal sphi ncter. A single figure of eight was applied to reapproximate the capsule. The laceration was then repaired in the usual fashion with 3-0 vicryl and 2-0 vicryl. Excellent hemostasis was noted. The following counts were correct: sponges, needles, instruments. Mother and infant in stable condition following the .
[2024-11-18] MEDS: ACETAMINOPHEN 500 MG TABLET 1000 MG PO ×2 (05:34→15:11)
[2024-11-18] MEDS: DOCUSATE SODIUM 100 MG CAPSULE PO (06:06)
[2024-11-18] MEDS: LACTATED RINGERS 1000 ML 1,000 ML 75 ML IV ×3 (06:59→21:32)
[2024-11-18 08:09] LABS: Hematocrit 32.9 % (33.0-51.0); Mean Corpuscular HGB Conc 33 gm/dL (32-36); Mean Corpuscular Hemoglobin 30 pg (26-34); Mean Corpuscular Volume 90 fL (80-100); Platelet Count* 222 K/uL (140-440); Red Blood Count 3.66 m/uL (4.00-5.20); White Blood Count* 22.02 K/uL (4.50-11.00)
[2024-11-18 08:12] LABS: Slide Review Reflex No
[2024-11-18 08:26] LABS: Alanine Aminotransferase* 22 U/L (4-35); Aspartate Amino Transferase* 30 U/L (12-35); Blood Urea Nitrogen* 13 mg/dL (5-24); Creatinine* 0.9 mg/dL (0.5-1.5); Est. Creatinine Clearance* 99.37; Estimated Glomerular Filt Rate 87 ml/min
[2024-11-18] MEDS: NIFEdipine 30 MG TAB.ER.24 PO (10:05)
--- NOTE | 2024-11-18 10:39 | P.OBPN_ITS ---
OB - PN:Subj Subjective Date Seen: 11/18/24 Narrative: Kianna is a 34-year-old seen on PPD0 from [facility] for prolonged second stage of labor following IOL at 36 weeks for superimposed preeclampsia with severe features yesterday, by severe range blood pressures. She was seen for brief early check this morning. Kianna notes she has been feeling well since delivery. She is understandably fatigued. She notes that her bottom is sore, but denies acute pain. Pain is manageable on ibuprofen and Tylenol, has not required any oxy. Lochia is described as small volume, where patient has noticed some incontinence of urine when she goes from sitting to standing to walk to the bathroom. Is voiding spontaneously, this has been large volumes. I suspect that she is simply having stress incontinence due to her recent delivery, where would recommend that she trialed timed voidings at least every 4 hours as it seems that she gets quite distended prior to her next void. She has not yet passed gas, no bowel movement. Appetite is appropriate, denies nausea or vomiting. Patient denies headaches, vision changes or right upper quadrant pain. She notes feeling flushed and sick from magnesium, she is looking forward to this being discontinued tonight. Blood pressures have been in the normal to mild range, plan to continue nifedipine 30 mg XL daily for now. Serial HELLP labs continue be normal, plan to recheck next 12 hours. Kianna is working to breastfeed baby Zhane. The family is bonding appropriately. OB - PN: Obj Exam Physical Exam: Vital signs: Temp Pulse Resp BP Pulse Ox O2 Del Method 98.7 F 82 16 142/90 H 98 Room Air 11/18/24 08:17 11/18/24 08:17 11/18/24 08:17 11/18/24 10:04 11/18/24 08:17 11/18/24 08:17 Narrative: General: Alert and oriented, no acute distress Psych: Appropriate mood and affect Abdomen: Soft, nontender nondistended. Fundus at umbilicus. OB - PN: Obj Data Labs Labs: Laboratory Results - last 24 hr 11/16/24 11/17/24 11/17/24 15:00 11:43 17:59 WBC 19.96 H 21.09 H RBC 3.87 L 3.82 L Hgb 11.5 L 11.4 L Hct 34.8 34.3 MCV 90 90 MCH 30 30 MCHC 33 33 Plt Count 193 193 BUN 14 13 Creatinine 0.9 0.9 Estimated Creat Clear 99.37 99.37 Estimated GFR 87 87 Magnesium 5.7 H* 6.1 H* AST 18 19 ALT 22 20 Group B Strep DNA Negative 11/18/24 08:04 WBC 22.02 H RBC 3.66 L Hgb 11.0 L Hct 32.9 L MCV 90 MCH 30 MCHC 33 Plt Count 222 BUN 13 Creatinine 0.9 Estimated Creat Clear 99.37 Estimated GFR 87 Magnesium AST 30 ALT 22 Group B Strep DNA OB - PN: A/P Delivery Assessment and Plan (1) Gestational hypertension: Problem details: Severe gestational hypertension superimposed on chronic hypertension Status: Acute Plan Kianna is a 34-year-old seen on PPD0 from [facility] for prolonged second stage of labor following IOL at 36 weeks for superimposed preeclampsia with severe features yesterday, by severe range blood pressures. She is feeling well since her delivery, though understandably sore in fatigue. Being all appropriate milestones for being close to her delivery. Recommend she trial timed voiding a bit closer together, as she has had very large volume void since delivery and notes some stress incontinence on her way to the bathroom. Lochia is appropriate. She last had a set HELLP labs at 8, these continue to be normal. Plan to repeat in 12 hours at 8:00 p.m. as her last set, as all prior labs have been within normal limits. Continue magnesium sulfate for 24 hours post delivery, discontinue around midnight tonight. Blood pressures have been in the normal to mild range, plan to continue her regimen of nifedipine 30 mg XL daily at this time. Further antihypertensive regimen titration may be required in the coming days. Diligent blood pressure and I/O monitoring ongoing. Plan day: 0 Plan: routine care
[2024-11-18] MEDS: IBUPROFEN 600 MG TABLET PO ×2 (11:09→20:22)
[2024-11-18] MEDS: MAGNESIUM Infusion 40 GM/1,000 ML IV.SOLN IVPB (12:03)
--- NOTE | 2024-11-18 13:06 | PM.ANPOST ---
Post Anesthesia Note Post Anesthesia Note Patient seen: Inpatient Respiratory Status: adequate Cardiovascular Status: adequate Mental Status: baseline Pain: adequate Temp: baseline Anesthetic awareness: N/A Complications: none Follow care: none
[2024-11-18 13:37] LABS: Magnesium* 6.6 mg/dL (1.5-2.6)
[2024-11-18 20:24] LABS: Hematocrit 28.6 % (33.0-51.0); Hemoglobin* 9.4 gm/dL (12.0-16.0); Mean Corpuscular HGB Conc 33 gm/dL (32-36); Mean Corpuscular Hemoglobin 30 pg (26-34); Mean Corpuscular Volume 91 fL (80-100); Platelet Count* 205 K/uL (140-440); Red Blood Count 3.14 m/uL (4.00-5.20)
[2024-11-18 20:35] LABS: Slide Review Reflex No
[2024-11-18 20:43] LABS: Creatinine* 0.8 mg/dL (0.5-1.5); Est. Creatinine Clearance* 111.79; Estimated Glomerular Filt Rate 100 ml/min
[2024-11-18 20:44] LABS: Alanine Aminotransferase* 19 U/L (4-35); Aspartate Amino Transferase* 23 U/L (12-35); Blood Urea Nitrogen* 16 mg/dL (5-24)
[2024-11-18] MEDS: SENNOSIDES 1 TAB TABLET PO (21:23)
[2024-11-19 00:04] VITALS: BP 118/72; PULSE 74; RESP 16; TEMP 36.5; O2SAT 96
[2024-11-19] MEDS: ACETAMINOPHEN 500 MG TABLET 1000 MG PO ×3 (00:51→17:31)
[2024-11-19 04:16] VITALS: BP 116/79; PULSE 82; RESP 16; TEMP 36.4; O2SAT 96
[2024-11-19] MEDS: IBUPROFEN 600 MG TABLET PO ×2 (05:42→22:01)
[2024-11-19] MEDS: DOCUSATE SODIUM 100 MG CAPSULE PO (05:42)
[2024-11-19 08:40] VITALS: BP 120/74; PULSE 84; RESP 16; O2SAT 98
[2024-11-19] MEDS: SENNOSIDES 1 TAB TABLET PO ×2 (10:27→17:30)
[2024-11-19] MEDS: NIFEdipine 30 MG TAB.ER.24 PO (10:35)
[2024-11-19] MEDS: polyethylene glycoL 3350 17 GM PACK PO (10:36)
[2024-11-19 13:20] VITALS: BP 115/72; PULSE 80; RESP 16; O2SAT 97
[2024-11-19 17:25] VITALS: BP 134/84; PULSE 84; RESP 16; O2SAT 95
--- NOTE | 2024-11-19 19:03 | P.OBPN_ITS ---
OB - PN:Subj Subjective Time Seen by Provider: 08:00 Date Seen: 11/19/24 Narrative: Overnight patient reports urinary incontinence and inability to stop her urine stream when it starts. She was anticipating urinary incontinence with sneezing, coughing, and increased activity but not loss of urine with just getting up and walking around. Reports pain is minimal and loss of urine is not due to inability to ambulate to toilet in an efficient manner. Denies retention, hematuria or dysuria. We discussed that this can happen given prolonged 2nd stage, operative delivery, and increased diuresis in the state due to pre-e with severe features. She has significant edema and inflammation. Should improve as she heals. We discussed timed voiding every 2-3 hours to mitigate the # of episodes of incontinence. I anticipate she will benefit significantly from pelvic floor PT. This can be initiated once she's cleared off pelvic rest at her 6 week visit. Her pain is well controlled on oral pain medications. She is tolerating a regular diet. She has passed flatus but is extremely constipated. Reports no BM since before admission. Will work on bowel regimen to promote healthy BM. She is ambulating without difficulty. Lochia is scant. She is urinating without osullivan. Patient denies chest pain, SOB, n/v, headache, RUQ pain, vision changes, dizziness. [facility] d/c'ed at midnight. OB - PN: Obj Exam Physical Exam: Vital signs: Temp Pulse Resp BP Pulse Ox O2 Del Method 97.6 F 84 16 134/84 95 Room Air 11/19/24 04:16 11/19/24 17:25 11/19/24 17:25 11/19/24 17:25 11/19/24 17:25 11/19/24 17:25 Narrative: Physical exam: General: No acute distress Psych: Alert and oriented x4, full affect HEENT: Normocephalic, atraumatic Heart: Regular rate and rhythm, no murmur rub or gallop Lungs: Clear to auscultation bilaterally Abdomen: Soft, no tenderness, rebound, or guarding. Uterus firm 2 cm below umbilicus. Lower extremities: 2+ bilateral lower extremity edema. Pelvic exam: Deferred. OB - PN: Obj Data Labs Labs: Laboratory Results - last 24 hr 11/18/24 20:16 WBC 16.90 H RBC 3.14 L Hgb 9.4 L Hct 28.6 L MCV 91 MCH 30 MCHC 33 Plt Count 205 BUN 16 Creatinine 0.8 Estimated Creat Clear 111.79 Estimated GFR 100 AST 23 ALT 19 OB - PN: A/P Delivery Assessment and Plan (1) Gestational hypertension: Problem details: Severe gestational hypertension superimposed on chronic hypertension Status: Acute Plan Postoperative/post delivery Review: - Admitted for: Induction of labor due to preeclampsia with severe features - forceps assisted vaginal delivery with 3A laceration - Estimated blood loss: 700 mL - Urine output: adequate Pre-Eclampsia with SF - Based on severe ranging blood pressures - BPs 110-130s/60-80s - Symptoms: none - Magnesium: s/p 24 hours pp. - IV antihypertensives: currently not indicated - PO antihypertensive: Nifedipine 30mg XL QD - Pre-eclampsia labs on 11/18/24: Hgb 9.4 Plt 205 Cr 0.8 ALT 19 AST 23 - UOP: 3.6 cc/kg/hr Postoperative care: - Diet: Advance as tolerated - Fluid: Encourage oral intake - Activity: Encourage ambulation and incentive spirometry - Pain: Acetaminophen, Ibuprofen - DVT prophylaxis: SCDs and TEDs when not ambulating. Dispo: Patient is PPD#1. Need the following milestones: Observation of BP off mag for 24 hours. Anticipate discharge POD#2.
[2024-11-19 20:37] VITALS: BP 108/69; PULSE 80; RESP 16; TEMP 37; O2SAT 97
[2024-11-20 00:24] VITALS: BP 124/86; PULSE 71; RESP 16; TEMP 36.8; O2SAT 97
[2024-11-20 04:26] VITALS: BP 122/84; PULSE 81; RESP 16; TEMP 36.9; O2SAT 98
[2024-11-20 06:32] LABS: Hematocrit 31.3 % (33.0-51.0); Hemoglobin* 10.2 gm/dL (12.0-16.0); Mean Corpuscular HGB Conc 33 gm/dL (32-36); Mean Corpuscular Hemoglobin 30 pg (26-34); Mean Corpuscular Volume 92 fL (80-100); Platelet Count* 198 K/uL (140-440)
[2024-11-20 06:43] LABS: Slide Review Reflex No
[2024-11-20 06:55] LABS: Alanine Aminotransferase* 22 U/L (4-35); Aspartate Amino Transferase* 23 U/L (12-35); Blood Urea Nitrogen* 15 mg/dL (5-24); Creatinine* 0.8 mg/dL (0.5-1.5); Est. Creatinine Clearance* 111.79; Estimated Glomerular Filt Rate 100 ml/min
[2024-11-20] MEDS: NIFEdipine 30 MG TAB.ER.24 PO (07:52)
[2024-11-20] MEDS: ACETAMINOPHEN 500 MG TABLET 1000 MG PO (07:53)
[2024-11-20] MEDS: DOCUSATE SODIUM 100 MG CAPSULE PO (07:53)
[2024-11-20 07:58] VITALS: BP 126/82; PULSE 79; RESP 16; TEMP 36.7; O2SAT 97
--- NOTE | 2024-11-20 10:04 | PM.OBDSVD1 ---
DS: Providers Provider Date Seen: 11/20/24 Date of admission: 11/16/24 17:13 Primary care physician: Not a Local Provider Admitting Clinician: Yesenia Morejon MD Attending Physician on discharge: Yesenia Morejon MD Date of Discharge: 11/20/24 DS: Diagnosis Discharge Diagnosis (1) Gestational hypertension: Status: Acute Problem details: Severe gestational hypertension superimposed on chronic hypertension (2) Forceps delivery: Status: Acute Exam Narrative: Exam Narrative: General: Pleasant, no acute distress Heart: Regular rate and rhythm, no murmur or gallop Lungs: Clear to auscultation bilaterally Abdomen: Soft, nontender, fundus well below umbilicus Lower extremities: 1+ edema bilaterally, no erythema Const: Vital Signs, click to edit/add: Vital Signs - 24 hr 11/19/24 13:20 11/19/24 17:25 11/19/24 20:37 Temperature 98.6 F Pulse Rate [Pulse Oximeter] 80 84 80 Respiratory Rate 16 16 16 Blood Pressure [Le ft Arm] 115/72 134/84 108/69 Pulse Oximetry 97 95 97 Oxygen Delivery Me thod Room Air Room Air Room Air 11/20/24 00:24 11/20/24 04:26 11/20/24 07:58 Temperature 98.2 F 98.4 F 98.1 F Pulse Rate [Pulse Oximeter] 71 81 79 Respiratory Rate 16 16 16 Blood Pressure [Le ft Arm] 124/86 122/84 126/82 Pulse Oximetry 97 98 97 Oxygen Delivery Me thod Room Air Room Air Room Air OB - DS: Summary Hospital Course Hospital Course: Kianna is a G1 now P 0-1-0-1 woman who is s/p forceps-assisted vaginal delivery on 11/18/2024 at 36 weeks, 1 day gestation after IOL for chronic HTN with severe gestational exacerbation. She gave to a female infant. She had a 3A obstetrical laceration. She was maintained on magnesium sulfate throughout labor course and for 24 hours . She was started on nifedipine ER 30 mg daily. the patient has done well. Today, on day 2, she has no complaints. She reports bleeding similar to a heavy period. Pain is well managed. She has had a bowel movement and is taking stool softeners. She is attempting to feed expressed breast milk to her infant daughter. Her daughter has had several episodes of apnea, and will require transfer for higher level of care. She has been normotensive for the last 24 hours. Her hemoglobin today is 10.2, up from 9.4 yesterday. Platelets continued to be normal. Creatinine and transaminases are also normal. Peripartum Data Procedures: Procedures Operation Date: 11/18/24 00:00 Actual Procedure Side Surgeon p Standby forceps delivery in OR Jennifer Mendez MD Gender: Female Time Spent with Patient Time attestation: Total time spent providing and/or coordinating discharge services: Discharge Plan Discharge Disposition: Home, Self-Care Date of Admission: 11/16/24 17:13 Attending Provider on Discharge: Yesenia Morejon Primary Care Provider: Provider,Not a Local Condition: Stable Anticipated Discharge Date/Time: 11/20/24 10:07 Discharge Medications: New acetaminophen 500 mg Tablet 1,000 mg PO Q6H PRN (Reason: pain/fever) Qty: 0 0RF docusate sodium 100 mg Capsule 100 mg PO BID Qty: 0 0RF ibuprofen 600 mg Tablet 600 mg PO Q6H PRNQty: 0 0RF Lanolin (HPA) 100 % Cream 1 applic topical Q1H PRNQty: 0 0RF ferrous sulfate 325 mg (65 mg iron) tablet 325 mg PO Q OTHER DAY Qty: 20 0RF Continued DHA 200 mg capsule 200 mg PO DAILY nifedipine 30 mg tablet extended release 30 mg PO QDAY Qty: 90 0RF Discontinued acetaminophen [Tylenol] 325 mg capsule 325 mg PO ONCE PRN aspirin 81 mg tablet,chewable 81 mg PO QDAY Discharge Orders: Discharge Order (Routine); Ordered 11/20/24 Ordered By: Yesenia Morejon Patient Education: OB High Blood Pressure DC, OB Vaginal/Bottle Feeding Additional Instructions: Follow up in clinic for blood pressure check if possible in 3-5 days. Follow up for visits in 2 and 6 weeks. Activity Level: Activity as Tolerated Discharge Diet: Regular Follow Up Appointments: Yesenia Morejon MD [Staff Physician] - Provider,Not a Local [Primary Care Provider] - Forms: Mobile Bridge Info Instructions
== END 2024-11-20 11:15 | disposition home or self-care (01) | DRG 768 ==
LOC: OB OUT 17:14 → OB 17:14
PROVIDERS: Obstetrics & Gynecology; Admitting Provider Obstetrics & Gynecology; Visit Provider Obstetrics & Gynecology
PROC: 10907ZC Drainage of Amniotic Fluid, Therapeutic from Products of Conception, Via Natural or Artificial Opening (ICD-10-PCS; CPT 59514; principal; 2024-11-17 23:45)
DX: O10.92 Unspecified pre-existing hypertension complicating childbirth (principal); Z37.0 Single live birth; O70.21 Third degree perineal laceration during delivery, IIIa; O11.4 Pre-existing hypertension with pre-eclampsia, complicating childbirth; O63.1 Prolonged second stage (of labor); Z3A.36 36 weeks gestation of pregnancy; R32 Unspecified urinary incontinence
CPT/HCPCS: 01967; 36415; 76815; 82565; 83735; 84450; 84460; 84520; 85027; 86592; 86850; 86900; 86901; 87081; 87653; A9270; J0290; J0456; J0702; J2270; J2371; J2405; J2795; J3010; J3475; J7050; J7120

== ENCOUNTER 2024-11-29 13:00 | Outpatient (CLI) | payer BC, SELFPAY ==
--- NOTE | 2024-11-29 14:15 | P.LACCB_ITS ---
Consult Note - Mom Date of Visit Date of visit: 11/29/24 Reason for consultation: Assistance Needed and Low Milk Supply Visit Code: Visit Patient's Information Phone number: [phone] : 1 Para: 1 Allergies No Known Drug Allergies Allergy (Verified 11/26/24 10:19) Mother's medical history: Difficulty conceiving (took about 1.5 years to get ) and Other (preE) Mother's Medical History: Medical History (Updated 11/24/24 @ 00:00 by Background Daemon) Menstrual headache ?G43.829 - Menstrual migraine, not intractable, without status migrainosus (ICD-10) Dysmenorrhea ?N94.6 - Dysmenorrhea, unspecified (ICD-10) Delivery Information Gestational Age: 36+1 Baby's Information Baby's Age at Visit: 11 days Past Experience Past Experience: No Current Frequency of Day Feedings: every 2.5-3 hrs Frequency of Night Feedings: same Latch: mom strictly pumping and bottling currently Pumping Pumping: Yes Quantity Pumped: 40ml most pumps, sometimes 50ml in the AM Supplementing EBM Supplement: Yes (Neosure added to 22kcal) Formula Supplement: Yes (Neosure) Baby Elimination Number of Wet Diapers a Day: ea feeding Number of BM a Day: 5-6/day Breast/Nipple Condition Breast Information: Breasts are symmetrical with rounded lower quadrants, intramammary distance is less than 1.5 inches. No erythema. Nipples are supple, everted prior to feeding. Breast Shape: Round Engorgement: No Maternal Nipple Condition - Left: Common Nipple Maternal Nipple Condition - Right: Common Nipple Sore Nipples: No Baby Assessment Skin: Other (baby not here with mom for appointment) Assessments/Interventions Assessments/Interventions: Mom is currently strictly pumping and bottling. Initially was , latched to the breast within the first hour of life. Baby , SGA, and was having low blood sugars so mom switched to pumping out of concern for baby's health. Baby born on [birth year]/24 Baby transferred to [facility] for low oxygen on 11/20/24 Mom continuued pumping for milk supply; used hospital grade pump while at NICU but didn't receive help from services Feels her milk started coming in on 11/23/24 - day 5 of life She did have some breast enlargement during and breasts were tender in the first trimester Feeling good post delivery, bleeding is present but light, she is eating well and drinking well Current pumping routine is every 2.5-3 hours for 18-20 minutes Gets 40 ml most pumps; might get 50ml with first AM pump L makes 5-10 more ml than R breast Has a letdown in the first 1-2 minutes of pumping Using a Spectra pump with flange sizes for 24 and 28 Kianna is looking for ideas to increase her milk supply Education provided: Supply/demand nature of milk supply, Need for frequent stimulation/milk removal and Pumping for milk management Handouts Provided: How to pump more milk by Spectra Feeding Plan: Pumping plan discussed: 1. Consider hospital grade breast pump rental for 1 month from [employer]; resource info given 2. Power Pumping session, 1 time/day 3. Skin to skin: 2-3 times/day minimum; 15 min or more, especially just prior to pumping 4. Flange size correction: R nipple 18mm, L nipple 16 mm. Discussed flange sizes 2-4mm larger than nipple. Recommend start with 20mm bilaterally and adjust if needed 5. Fscl-lq-oldctym: breast massage prior to pumping and then during pump session when able 6. Oatmeal daily, can add brewers yeast 7. Discussed galactogogues: may or may not help, if no contraindication, can try if you want to. Recommend More Milk Special Blend by [employer] if choose to given premature delivery 8. Mother's Milk Tea if desire to start something right away 9. Track 24 hour pumped milk totals more than each individual session to track progress 10. Expect at least 7 days to see significant changes given current status 11. follow up as needed with questions/concerns Follow-Up Suggested follow up: Appointment as needed Time Spent Time spent with patient (min): 60 Meds Home Medications and Allergies Home Medications ?Medication ?Instructions ?Recorded ?Confirmed ?Type docosahexaenoic acid 200 mg 200 mg PO DAILY 01/12/24 11/26/24 History capsule ( DHA) Allergies Allergy/AdvReac Type Severity Reaction Status Date / Time No Known Drug Allergies Allergy Verified 11/26/24 10:19
== END 2024-11-29 13:01 | disposition home or self-care (01) ==
PROVIDERS: Visit Provider Obstetrics & Gynecology
DX: Z39.1 Encounter for care and examination of lactating mother (principal)
CPT/HCPCS: G0463

== ENCOUNTER 2024-12-19 13:29 | Outpatient (CLI) | payer BC, SELFPAY ==
[2024-12-19 13:41] LABS: Clue Cells No Clue Cells Seen (None Seen); Trichomonas No Trichomonas Seen (None Seen); Yeast No Yeast Seen (None Seen)
[2024-12-19 20:05] LABS: Bacterial Vaginosis* POSITIVE (Negative); Candida glab/krus NOT DETECTED (No Detected); Candida species NOT DETECTED (No Detected); Trichomonas vaginalis NOT DETECTED (No Detected)
== END 2024-12-19 13:30 | disposition home or self-care (01) ==
PROVIDERS: Visit Provider Registered Nurse
DX: N89.8 Other specified noninflammatory disorders of vagina (principal)
CPT/HCPCS: 81513; 87210; 87481; 87661

== ENCOUNTER 2025-05-09 15:15 | Outpatient (CLI) | payer BC, SELFPAY | END 2025-05-09 15:16 | disposition home or self-care (01) | LOC: NFLDREF 05-14 23:17 | PROVIDERS: PCP Family Medicine; Visit Provider Internal Medicine Nephrology | DX: O12.10 Gestational proteinuria, unspecified trimester (principal) | CPT/HCPCS: 80061; 80069; 82043; 82570; 82728; 83540; 83550; 84450; 84460; 87086 ==

== ENCOUNTER 2025-05-13 06:31 | Outpatient (CLI) | payer BC, SELFPAY | END 2025-05-13 06:32 | disposition home or self-care (01) | LOC: NFLDREF 15:41 | PROVIDERS: PCP Family Medicine; Visit Provider Internal Medicine Nephrology | DX: O12.10 Gestational proteinuria, unspecified trimester (principal) | CPT/HCPCS: 82570; 84156 ==

== ENCOUNTER 2025-05-29 15:05 | Outpatient (CLI) | payer BC, SELFPAY | END 2025-05-29 15:06 | disposition home or self-care (01) | LOC: NFLDREF 06-02 06:50 | PROVIDERS: PCP Family Medicine; Referring Provider Family Medicine; Visit Provider Internal Medicine Nephrology | DX: R80.9 Proteinuria, unspecified (principal) | CPT/HCPCS: 80048 ==

== ENCOUNTER 2025-06-04 08:00 | Outpatient (RCR) | payer BC, SELFPAY ==
[2025-06-17 07:14] LABS: Protein Creatinine Ratio Urine 0.16 (0-0.19)
[2025-06-17 07:19] LABS: Total Volume 24 Hour Urine 2150 ml; Urine Creatinine mg/24 Hour 1436 mg/Day
== END 2025-08-20 14:27 | disposition home or self-care (01) ==
PROVIDERS: Internal Medicine Nephrology; PCP Family Medicine; Visit Provider Obstetrics & Gynecology
DX: G57.10 Meralgia paresthetica, unspecified lower limb (principal); Z51.89 Encounter for other specified aftercare
CPT/HCPCS: 82570; 84156; 97012; 97110; 97140; 97161

== ENCOUNTER 2025-07-29 15:17 | Outpatient (CLI) | payer BC, SELFPAY ==
--- NOTE | 2025-07-29 15:30 | CRLHL7_ITS ---
For Patients: As a result of the Century Cures Act, medical imaging exams and procedure reports are released immediately into your electronic medical record. You may view this report before your referring provider. If you have questions, please contact your health care provider. INDICATION: Left-sided meralgia paresthetica TECHNIQUE: Noncontrast sagittal and axial T1, T2, and sagittal STIR sequences are provided. No comparisons. FINDINGS: The overall stature, alignment and intrinsic marrow signal of the lumbar spine is within normal limits. Conus is normal. No suspicious disc bulges or protrusions. No suspicious central canal or foraminal narrowing. IMPRESSION: Unremarkable MRI of the lumbar spine. Dictated by Bereket Vasques MD @ 07/29/2025 8:16:26 PM (Electronically Signed)
== END 2025-07-29 15:18 | disposition home or self-care (01) ==
LOC: MRI 15:18
PROVIDERS: PCP Family Medicine; Visit Provider Nurse Anesthetist, Certified Registered
DX: G57.12 Meralgia paresthetica, left lower limb (principal)
CPT/HCPCS: 72148

== ENCOUNTER 2025-07-30 14:53 | Outpatient (CLI) | payer BC, SELFPAY | END 2025-07-30 14:54 | disposition home or self-care (01) | LOC: NFLDREF 08-05 08:18 | PROVIDERS: PCP Family Medicine; Referring Provider Family Medicine; Visit Provider Internal Medicine Nephrology | DX: O12.12 Gestational proteinuria, second trimester (principal) | CPT/HCPCS: 80069 ==

== ENCOUNTER 2025-08-21 12:44 | Outpatient (CLI) | payer BC, SELFPAY | END 2025-08-21 12:45 | disposition home or self-care (01) | LOC: INJ CL 13:02 | PROVIDERS: PCP Family Medicine; Visit Provider Nurse Anesthetist, Certified Registered | DX: M54.16 Radiculopathy, lumbar region (principal) | CPT/HCPCS: 62323; J0665; J1100; Q9966 ==

== ENCOUNTER 2025-11-07 06:54 | Outpatient (CLI) | payer BC, SELFPAY ==
[2025-11-07 07:36] LABS: Protein Creatinine Ratio Urine 0.23 (0-0.19)
[2025-11-07 07:38] LABS: Total Volume 24 Hour Urine 2100 ml; Urine Creatinine mg/24 Hour 1117 mg/Day
== END 2025-11-07 06:55 | disposition home or self-care (01) ==
PROVIDERS: Internal Medicine Nephrology; PCP Family Medicine; Visit Provider Family Medicine
DX: Z87.59 Personal history of other complications of pregnancy, childbirth and the puerperium (principal); O12.10 Gestational proteinuria, unspecified trimester
CPT/HCPCS: 82570; 84156